=== PATIENT | female | born 1960 | race Caucasian/White ===

== ENCOUNTER → 2019-10-19 | Outpatient (CLI) | payer OTHER ==
[~2019-10-19] MED LIST: GADODIAMIDE 10 MMOL/20 ML VIAL IV ONE
== END | disposition home or self-care (01) ==
LOC: RAH 14:13
PROVIDERS: ATTEND Emergency Medicine Emergency Medical Services
DX: N63.10 Unspecified lump in the right breast, unspecified quadrant (principal)
CPT/HCPCS: A9579; C8903; 77049

== ENCOUNTER 2024-03-18 14:49 | Emergency (ER) | payer OTHER ==
[~2024-03-18] VITALS: Ht 160 cm; Wt 80.3 kg
--- NOTE | 2024-03-18 15:02 | ERN ---
General Chief Complaint: Chest Wall Pain Stated Complaint: CHEST WALL PAIN Time Seen by MD: 14:55 Time Seen by Midlevel: 14:55 Source: patient History of Present Illness Initial Comments Patient is a 63-year-old female with a past medical history of hypertension on losartan presenting to the emergency department with chest pain that started at approximately 10:30 a.m. today. [facility] who performed an EKG it revealed normal sinus rhythm. She was advised to report to the emergency department for further observation and management. Patient states she takes losartan every day in the morning and metoprolol at night as needed. Denies taking any blood thinners. Denies any other concerns at this time. Allergies: Coded Allergies: fluticasone (Unverified Allergy, Unknown, 03/18/24) gabapentin (Unverified Allergy, Unknown, 03/18/24) meperidine (Unverified Allergy, Unknown, 03/18/24) salmeterol (Unverified Allergy, Unknown, 03/18/24) ROS Dictation CONSTITUTIONAL: Negative except for HPI HEAD/FACE: Negative except for HPI EENT: Negative except for HPI RESPIRATORY: Negative except for HPI GASTROINTESTINAL/ABDOMINAL: Negative except for HPI GENITOURINARY: Negative except for HPI MUSCULOSKELETAL: Negative except for HPI INTEGUMENTARY: Negative except for HPI NEUROLOGICAL/PSYCH: Negative except for HPI HEMATOLOGIC/LYMPHATIC: Negative except for HPI All Systems Negative, Except as noted above. 13 point review of systems assessed and all negative except for above. Physical Exam Physical Exam Dictation Vital Signs reviewed General Appearance: Alert, oriented x 3, no acute distress, well developed, nourished. Head and Face: non-traumatic. Eyes: PERRL, pink conjunctivas, eyelid no trauma, anterior chamber with arcus senilis. Ears: Pinnas intact and no signs of trauma or erythema ear canals clear and no discharge TM no erythema Nose: No discharge, no bleeding. Oropharynx: Mouth normal, tongue pink, pharynx clear,no erythema, tonsils no exudates, no abscesses noted, mucous membrane moist Neck: Supple, non-tender, no thyromegaly, no masses, no JVD, no bruits Breast:Deferred Chest:No tenderness, no crepitus, no paradoxical movement, no retractions Lungs:Clear, well-ventilated, symmetric, no rales, no wheezing, no rhonchi, no stridor, good breath sounds bilaterally Heart: Regular rate, regular rhythm, no murmur, no gallops Vascular: no peripheral edema, Abdomen: Soft, positive bowel sounds, nondistended, no guarding, nontender, no rebound, no masses no hepatomegaly, no splenomegaly, no Pruitt's sign, no hernias. Rectal: Deferred Genital: Deferred Neurological: Normal speech, motor function intact, sensory function intact Musculoskeletal: Neck nontender, full range of motion, back nontender, full range of motion, Extremities: nontender, full range of motion Skin: Color pink, dry, no turgor, no rash, no lacerations, no abrasions, no contusions. Lymphatic: Deferred Results Laboratory and Microbiology Lab and Micro Result Laboratory Tests Test 03/18/24 15:13 White Blood Count 6.5 K/uL (4.8-10.8) Red Blood Count 4.95 MIL/uL (4.00-5.50) Hemoglobin 12.8 g/dL (12.0-16.0) Hematocrit 41.1 % (36-48) Mean Corpuscular Volume 83.0 fL (79-99) Mean Corpuscular Hemoglobin 25.9 pg (27.0-33.0) L Mean Corpuscular Hemoglobin Concent 31.1 g/dL (32.0-36.0) L Red Cell Distribution Width 16.0 % (11.0-15.5) H Platelet Count 347 K/uL (130-400) Mean Platelet Volume 8.4 fL (7.5-10.5) Immature Granulocyte % (Auto) 0.6 % (0-1) Neutrophils (%) (Auto) 45.3 % (40.0-77.0) Lymphocytes (%) (Auto) 41.9 % (21.0-51.0) Monocytes (%) (Auto) 9.4 % (3.0-13.0) Eosinophils (%) (Auto) 2.0 % (0.0-8.0) Basophils (%) (Auto) 0.8 % (0.0-5.0) Neutrophils # (Auto) 2.9 K/uL (1.8-7.7) Lymphocytes # (Auto) 2.7 K/uL (1.0-4.8) Monocytes # (Auto) 0.6 K/uL (0.1-1.0) Eosinophils # (Auto) 0.13 K/uL (0.00-0.70) Basophils # (Auto) 0.05 K/uL (0.00-0.20) Absolute Immature Granulocyte (auto 0.04 K/uL (0-1) Nucleated Red Blood Cells 0.0 % (0.0-0.19) Sodium Level 142 mmol/L (136-145) Potassium Level 3.8 mmol/L (3.5-5.1) Chloride Level 105 mmol/L (101-111) Carbon Dioxide Level 26 mmol/L (21-32) Blood Urea Nitrogen 11 mg/dL (7-18) Creatinine 1.0 mg/dL (0.5-1.0) Glomerular Filtration Rate Calc 63 mL/min (>90) Random Glucose 98 mg/dL (70-105) Total Calcium 9.3 mg/dL (8.5-10.1) Magnesium Level 2.00 mg/dL (1.80-2.40) Total Creatine Kinase 48 U/L (21-232) Troponin I High Sensitivity < 4 ng/L (4-50) L B-Type Natriuretic Peptide 16 pg/mL (0-100) Labs Reviewed?: Yes MDM MDM: Patient is a 63-year-old female with a past medical history of hypertension on losartan presenting to the emergency department with chest pain that started at approximately 10:30 a.m. today. She [facility] today who performed an EKG it revealed normal sinus rhythm. She was advised to report to the emergency department for further observation and management. Patient states she takes losartan every day in the morning and metoprolol at night as needed. Denies taking any blood thinners. Denies any other concerns at this time. On physical examination patient is in no acute distress. Initial vital signs are stable. Patient is afebrile and nontoxic appearing. Shows a normal white blood cell count. Her chemistries unremarkable. Her cardiac enzymes are negative. Your chest x-ray does not show any acute abnormality. Repeat evaluation patient states her chest pain has completely resolved. She was chest pain-free. She was observed in the ER for over 1 hour and has remained stable and asymptomatic. Patient will be discharged home with close outpatient follow up. Patient already has an appointment with the Cardiology and will be following up outpatient. Return precautions discussed Differential diagnosis: ACS, pneumonia, pneumothorax, pulmonary edema, angina There are no social concerns with this patient. Prescription drug management Prescriptions will include: None Medical management and examination interpretation discussions were had by me with other qualified healthcare professionals as indicated for the patient's care. ED Course Orders Procedure Category Date Status Time 12 Lead Ekg Tracing- EKG 03/18/24 Complete Technical 14:50 B-Type Natriuretic LAB 03/18/24 Complete Peptide 14:59 Cbc With Differential LAB 03/18/24 Complete 14:59 Basic Metabolic Panel LAB 03/18/24 Complete 14:59 Creatine Kinase, Total LAB 03/18/24 Complete 14:59 Magnesium LAB 03/18/24 Complete 14:59 Urinalysis Profile LAB 03/18/24 In Process 14:59 Drug Screen Urine LAB 03/18/24 In Process 14:59 Troponin I High LAB 03/18/24 Complete Sensitivity 14:59 Chest 1vw RAD 03/18/24 Resulted 14:59 Vital Signs Date Time Temp Pulse Resp B/P (MAP) Pulse Ox O2 Delivery O2 Flow Rate FiO2 03/18/24 14:50 98.2 70 16 129/69 98 Room Air 0 03/18/24 14:50 98.2 70 16 129/69 98 Room Air* 0 21 [place] [address] [address] IMAGING REPORT Signed PATIENT: ADELAIDE OLIVO MR#: [id number] : 1960 SEX: F AGE: 63 LOCATION: [facility] ORDER 1500 STATUS: REG ER REPORT#: [id number] SERVICE 1459 REASON: chest pain ORDERING PHYSICIAN: ALEIDA OMALLEY PROCEDURE: CXR1VW - CHEST 1VW CHEST 1VW HISTORY: Chest pain COMPARISON: 06/11/2014 FINDINGS: A frontal projection of the chest was obtained. No acute pulmonary infiltrates is seen. The heart is normal in size. Degenerative changes are seen. Prominent interstitial markings are seen. No evidence of aortic calcification is seen. IMPRESSION: 1. No acute pulmonary infiltrate is seen. DICTATED BY: TIFFANIE LONGORIA MD DATE: 03/18/24 2475 ELECTRONICALLY SIGNED BY: TIFFANIE LONGORIA MD DATE: 03/18/24 3111 HEART Score Response (Comments) Value History: Low suspicion (0) 0 EKG: Normal 0 Age: 45-65yrs (+1) 1 Risk Factors: 1-2 risk factors (+1) 1 Initial Troponin: Normal limit (0) 0 HEART Score Risk: Low Risk for MACE (1-3) Total 2 DX & DISP Disposition: Discharge Departure Impression: Primary Impression: Non-cardiac chest pain Condition: Stable Additional Instructions: Your blood work today is unremarkable. Your EKG does not show any evidence of a heart attack. Your chest x-ray is normal. Your cardiac enzymes are negative. Please follow up with your primary care doctor in 2-3 days for repeat evaluation. Return to the ER if you develop any new or worsening symptoms. Referrals: DAVID MAYFIELD MD (PCP) Time of Disposition: 16:47 I have reviewed the case, and I agree with, Diagnosis and Plan I performed the substantive portion of the visit. I have reviewed and pers onally made and approve the management plan that is documented in the note by myself or the RISSA. I acknowledge for responsibility for the patient's management plan. ALEIDA OMALLEY Mar 18, 2024 15:02
--- NOTE | 2024-03-18 15:05 | EKG ---
[facility] Test Date: 2024-03-18 Test Time: 15:00:48 Pat Name: ADELAIDE OLIVO Department: ED Room: Gender: Female Flow Trader: [id number] : 1960 Requested By: HELEN ZHONG Order Number: [id number] Reading MD: Measurements Intervals [place] Rate: 94 P: 29 WV: 113 QRS: 43 QRSD: 83 T: 45 QT: 332 QTc: 415 Interpretive Statements Sinus rhythm Please click the below link to view image of tracing.
[2024-03-18 15:21] LABS: BASOPHILS # (AUTO) 0.05 K/uL (0.00-0.20); BASOPHILS % (AUTO) 0.8 % (0.0-5.0); EOSINOPHILS # (AUTO) 0.13 K/uL (0.00-0.70); HEMATOCRIT 41.1 % (36-48); IMMATURE GRANULOCYTE ABSOLUTE 0.04 K/uL (0-1); LYMPHOCYTES # (AUTO) 2.7 K/uL (1.0-4.8); LYMPHOCYTES % (AUTO) 41.9 % (21.0-51.0); MEAN CORPUSCULAR HEMOGLOBIN 25.9 pg (27.0-33.0); MEAN CORPUSCULAR HGB CONC 31.1 g/dL (32.0-36.0); MONOCYTES # (AUTO) 0.6 K/uL (0.1-1.0); MONOCYTES % (AUTO) 9.4 % (3.0-13.0); NEUTROPHILS # (AUTO) 2.9 K/uL (1.8-7.7); NEUTROPHILS % (AUTO) 45.3 % (40.0-77.0); PLATELET COUNT (AUTO) 347 K/uL (130-400); RED BLOOD CELL COUNT(AUTO) 4.95 MIL/uL (4.00-5.50); WHITE BLOOD COUNT (AUTO) 6.5 K/uL (4.8-10.8)
[2024-03-18 15:36] LABS: POTASSIUM 3.8 mmol/L (3.5-5.1)
--- NOTE | 2024-03-18 15:56 | HMCIMG ---
CHEST 1VW HISTORY: Chest pain COMPARISON: 06/11/2014 FINDINGS: A frontal projection of the chest was obtained. No acute pulmonary infiltrates is seen. The heart is normal in size. Degenerative changes are seen. Prominent interstitial markings are seen. No evidence of aortic calcification is seen. IMPRESSION: 1. No acute pulmonary infiltrate is seen.
[2024-03-18 15:59] LABS: B-TYPE NATRIURETIC PEPTIDE 16 pg/mL (0-100)
[2024-03-18 17:20] LABS: AMPHET/METH SCREEN,URINE NEGATIVE (NEGATIVE); BARBITURATE SCREEN, URINE NEGATIVE (NEGATIVE); BENZODIAZEPINES SCREEN,URINE NEGATIVE (NEGATIVE); CANNABINOID SCREEN,URINE NEGATIVE (NEGATIVE); COCAINE SCREEN,URINE NEGATIVE (NEGATIVE); OPIATE SCREEN,URINE POSITIVE (NEGATIVE); PHENCYCLIDINE SCREEN,URINE NEGATIVE (NEGATIVE)
[2024-03-18 17:38] VITALS: BP 141/68; PULSE 71; RESP 16; TEMP 98.1; O2SAT 100
[2024-03-18 18:00] LABS: APPEARANCE,URINE CLEAR (CLEAR); BILIRUBIN,URINE NEGATIVE (NEGATIVE); COLOR,URINE LIGHT-YELLOW (YELLOW); GLUCOSE, URINE (UA) >=1000 mg/dL (NEGATIVE); KETONES,URINE NEGATIVE (NEGATIVE); LEUKOCYTE ESTERASE ,URINE NEGATIVE Leu/uL (NEGATIVE); NITRATE,URINE NEGATIVE (NEGATIVE); OCCULT BLOOD,URINE NEGATIVE (NEGATIVE); PROTEIN,URINE NEGATIVE (NEGATIVE); UROBILINOGEN,URINE 0.2 mg/dL (0.2-1.0)
[2024-03-18 18:01] LABS: ADD UA MICROSCOPIC YES
[2024-03-18 18:03] LABS: RBC,URINE 0-1 /HPF (0-1); SQUAMOUS EPITHELIAL CELL,UR RARE /HPF (0-2); WBC,URINE 0-1 /HPF (0-1)
== END 2024-03-18 17:39 | disposition home or self-care (01) ==
LOC: EDH 14:49
DX: R07.89 Other chest pain (principal); I10 Essential (primary) hypertension; Z79.899 Other long term (current) drug therapy; Z88.8 Allergy status to other drugs, medicaments and biological substances; Z88.5 Allergy status to narcotic agent
CPT/HCPCS: 36415; 71045; 80048; 80305; 81001; 82550; 83735; 83880; 84484; 85025; 93005; 99285